=== PATIENT | female | born 1935 | race Caucasian/White ===

== ENCOUNTER 2016-06-06 15:26 | Emergency (ER) | payer OTHER, MEDICARE ==
--- NOTE | 2016-06-06 15:29 | ED GENERAL ADULT ---
History of Present Illness General Chief Complaint: Altered Mental Status Stated Complaint: BIBA FOR AMS Source: patient, AIDE Exam Limitations: clinical condition Vital Signs & Intake/Output Vital Signs & Intake/Output Vital Signs Date Time Temp Pulse Resp B/P Pulse O2 O2 Flow FiO2 Ox Delivery Rate 06/06 1951 98.0 89 18 126/58 96 Room Air 06/06 1545 97.2 64 18 120/57 99 Room Air Room Air Allergies Coded Allergies: No Known Allergies (08/19/15) Reconcile Medications Acetaminophen (8 Hour) 650 MG TABLET.ER 1 TAB PO BID PRN ARTHRITIS PAIN ( Reported) Allopurinol 100 MG TABLET 1 TAB PO DAILY UNKNOWN (Reported) Amlodipine Besylate 5 MG TABLET 0.5 TAB PO QPM BP (Reported) Amoxicillin 500 MG TABLET 1 TAB PO BID UTI Aspirin (Ecotrin*) 81 MG TABLET.DR 1 TAB PO DAILY HEART/BLOOD (Reported) Calamine 180 ML LOTION 1 GENARO TOP EOD BACK (Reported) Cholecalciferol (Vitamin D3) (Vitamin D3) 1,000 UNIT CAPSULE 1 CAP PO DAILY SUPPLEMENT (Reported) Cyanocobalamin (Vitamin B-12) 1,000 MCG TABLET 0.5 TAB PO DAILY SUPPLEMENT ( Reported) Escitalopram Oxalate 10 MG TABLET 1 TAB PO DAILY MENTAL HEALTH (Reported) Ezetimibe (Zetia) 10 MG TABLET 1 TAB PO DAILY CHOLESTEROL (Reported) Metoprolol Tartrate 25 MG TABLET 1 TAB PO BID HEART/BP (Reported) Nystatin 100,000 UNIT/GRAM CREAM..G. 1 GENARO TOP BID RASH ON ABDOMEN (Reported) apply to affected area(s) Pravastatin Sodium 20 MG TABLET 1 TAB PO DAILY CHOLESTEROL (Reported) Triamcinolone Acetonide 0.1 % CREAM..G. 1 GENARO TOP BID RASH - ABDOMEN ( Reported) Valsartan (Diovan) 40 MG TABLET 1 TAB PO DAILY HEART/BP (Reported) Triage Nurses Notes Reviewed? yes Onset: Abrupt Duration: day(s): Timing: recent history HPI: 06/06/16 5:30 PM This is a 80-year-old female who presents to the emergency department for episodes of confusion earlier today according to her home health aide. The patient stated that her home health aide was worried about a and so she called 911. She denies fever, chest pain, headache, abdominal pain or any complaints. She is awake alert and oriented 3, she says she has a history of polio as a child and is unable to ambulate. The onset of the symptoms were abrupt the duration was just today, the severity was significant as she was required to come to the hospital by ambulance. Head CT was ordered, EKG was ordered, labs were done. Past History Travel History Traveled to [place] past 21 day No Medical History Any Pertinent Medical History? see below for history Neurological: NONE EENT: NONE Cardiovascular: hypertension, hyperlipidemia Respiratory: NONE Gastrointestinal: NONE Hepatic: NONE Renal: NONE Musculoskeletal: NONE Psychiatric: NONE Endocrine: NONE Surgical History Surgical History: non-contributory Psychosocial History What is your primary language Haitian Family History Hx Contributory? No Review of Systems Review of Systems Constitutional: Denies: fever. EENTM: Denies: visual changes. Respiratory: Denies: cough, short of breath. Cardiovascular: Denies: chest pain. GI: Denies: abdominal pain. Genitourinary: Reports: no symptoms. Musculoskeletal: Reports: no symptoms. Skin: Denies: rash. Neurological/Psychological: Reports: confusion. Hematologic/Endocrine: Denies: bruising, bleeding. Physical Exam Physical Exam General Appearance: alert, awake, anxious, mild distress Head: atraumatic, normal appearance Eyes: Bilateral: normal appearance, PERRL, EOMI. Ears, Nose, Throat: normal pharynx, normal ENT inspection, hearing grossly normal Neck: normal inspection, supple, full range of motion Respiratory: normal breath sounds, chest non-tender Cardiovascular: regular rate/rhythm Peripheral Pulses: 4+ radial (R), 4+ radial (L) Gastrointestinal: non-tender Back: decreased range of motion Extremities: CONTRACTURES Neurologic/Psych: awake, alert, oriented x 3 Skin: intact, normal color, warm/dry Core Measures ACS in differential dx? No CVA/TIA Diagnosis: No Severe Sepsis Present: No Septic Shock Present: No Progress Differential Diagnoses I considered the following diagnoses in my evaluation of the patient: [CVA, TIA, sepsis, UTI, electrolyte derangement] Plan of Care: Orders Procedure Date/time Status Add-on Test (ER Only) 06/06 1925 Active Straight Cath 06/06 1724 Active CULTURE,URINE 06/06 161 Active URINALYSIS 06/06 1612 Complete TROPONIN LEVEL 06/06 161 Complete COMPREHENSIVE METABOLIC PANEL 06/06 161 Complete CBC WITHOUT DIFFERENTIAL 06/07 1611 Complete EKG 06/07 1611 Active Laboratory Tests 06/06/161826: Urine Color YEL, Urine Clarity HAZY H, Urine pH 7.0, Ur Specific [place] 1.015, Urine Protein NEG, Urine Ketones NEG, Urine Nitrite NEG, Urine Bilirubin NEG, Urine Urobilinogen 0.2, Ur Leukocyte Esterase MOD H, Ur Microscopic SEDIMENT EXAMINED, Urine RBC 3-5, Urine WBC > 75 H, Ur Epithelial Cells OCCAS, Urine Bacteria MANY H, Urine Hemoglobin NEG, Urine Glucose NEG 06/06/16 1649: Anion Gap 10, Estimated GFR > 60, BUN/Creatinine Ratio 30.0 H, Glucose 100 H, Calcium 9.6, Total Bilirubin 0.5, AST 24, ALT 33, Alkaline Phosphatase 92, Troponin I < 0.01, Total Protein 7.1, Albumin 3.9, Globulin 3.2, Albumin/ Globulin Ratio 1.2, CBC w Diff NO MAN DIFF REQ, RBC 4.39, MCV 87.5, MCH 28.7, RDW 14.0, MPV 7.9, Gran % 74.8, Lymphocytes % 14.7 L, Monocytes % 9.9 H, Eosinophils % 0.3, Basophils % 0.3, Absolute Granulocytes 7.7 H, Absolute Lymphocytes 1.5, Absolute Monocytes 1.0 H, Absolute Eosinophils 0, Absolute Basophils 0, PUBS MCHC 32.8 L Microbiology 06/06 1826 URINE ROUT: Urine Culture - RECD CXR Impression: no acute abnormality, no infiltrates, normal size heart Initial ED EKG: NSR, PVC Prior EKG: unchanged Comments: HEAD CT PATIENT: DOUG OLMOS PRESENT AGE: 80 PATIENT ACCOUNT NO: [id number] : 37 LOCATION: [facility] ORDERING PHYSICIAN: JERRELL GARVIN DO SERVICE DATE: 06/06/16 EXAM TYPE: CAT - CT HEAD WO IV CONTRAST EXAMINATION: CT HEAD WITHOUT CONTRAST CLINICAL INFORMATION: Altered mental status. Evaluate for acute stroke. COMPARISON: None. TECHNIQUE: Contiguous axial imaging was performed from the skull base to vertex without intravenous administration of contrast. DLP: 600 mGy-cm FINDINGS: No acute intracranial abnormality. No acute intracranial hemorrhage, mass or mass effect or abnormal extra-axial fluid collections. The density within the dural venous sinuses is within normal limits. There is generalized parenchymal volume loss with proportional prominence of the sulci and ventricles. There are no focal areas of hypoattenuation within a vascular distribution to suggest acute transcortical ischemia. Areas of hypoattenuation within the periventricular and deep cortical white matter are nonspecific but could reflect sequela of severe chronic microvascular ischemia. The basilar cisterns are patent. No acute calvarial abnormality is identified. Soft tissues appear unremarkable. Evaluation of the paranasal sinuses demonstrates complete opacification of the right maxillary sinus. There is also near complete opacification of the left sphenoid sinus. The remaining imaged paranasal sinuses and mastoid air cells are well aerated. IMPRESSION: No acute intracranial abnormality. However, please note that MRI of the brain is more sensitive in evaluating for underlying ischemia. Confluent and patchy areas of hypoattenuation within the periventricular and deep cortical white matter are nonspecific but could reflect sequela of severe chronic microvascular ischemia. If clinical concern for acute stroke persists, consider correlation with MRI of the brain, barring any contraindications to MRI. This critical result was discussed with Dr. Jerrell Garvin at 5:46 PM on 06/06/2016 and it was ascertained that the content and urgency of the report was understood at the time of direct communication. DICTATED BY: FRED TORRES MD DATE/TIME DICTATED:06/06/161739 UNION CARPENTER:SAVANNA DATE/TIME TRANSCRIBED:06/06/161739 CONFIDENTIAL, DO NOT COPY WITHOUT APPROPRIATE AUTHORIZATION. <Electronically signed in Other Vendor System> SIGNED BY: FRED TORRES MD 06/06/16 174 Departure Departure Disposition: HOME OR SELF CARE Condition: Stable Clinical Impression Primary Impression: UTI (urinary tract infection) Secondary Impressions: Altered mental status Referrals: MARY RODRIGUEZ MD (PCP/Family) Departure Forms: Customer Survey General Discharge Information Prescriptions: Current Visit Scripts Amoxicillin 1 TAB PO BID #20 TAB Comments 06/06/16 6:30 PM Patient's labs are unremarkable. Head CT shows no acute changes. She does have pyuria urine culture was sent. She was comfortable returning home. Her aide will be with her tomorrow morning. She was awake alert and oriented 3. She understood the discharge plan. I also reviewed the history with the aid. There were no new medication changes. She's not had fever. She's had episodes of confusion in the past, it seemed to be more frequent today. She will follow- up with her primary care doctor this week. Critical Care Note Critical Care Note Critical Care Time: non-applicable
--- NOTE | 2016-06-06 16:57 | RADIOLOGY REPORT ---
EXAMINATION: XR PORTABLE CHEST CLINICAL INFORMATION: Altered mental status, evaluate for pneumonia. COMPARISON: Portable chest x-ray 05/23/2012. TECHNIQUE: Portable AP view of the chest was obtained. FINDINGS: The cardiomediastinal silhouette is within normal limits. There is a small focus of discoid atelectasis at the left lung base laterally. No focal infiltrate, congestion, or significant pleural effusion is seen. There is no evidence of pneumothorax or pulmonary edema. Included osseous structures appear osteopenic with advanced degenerative changes in the shoulders, left side greater than right. IMPRESSION: No evidence of an acute intrathoracic process.
[2016-06-06 16:59] LABS: ABSOLUTE BASOPHIL COUNT 0 /CUMM (0.0-0.2); ABSOLUTE EOSINOPHIL COUNT 0 /CUMM (0.0-0.7); ABSOLUTE GRANULOCYTE CT 7.7 /CUMM (1.4-6.5); ABSOLUTE LYMPH COUNT 1.5 /CUMM (1.2-3.4); BASOPHIL % 0.3 % (0.0-2.0); EOSINOPHIL % 0.3 % (0-5); GRANULOCYTE % 74.8 % (42.2-75.2); HEMATOCRIT 38.4 % (37-47); MEAN CORPUSCULAR HGB 28.7 PG (27.0-31.0); MEAN CORPUSCULAR HGB CONC 32.8 G/DL (33.0-37.0); MEAN CORPUSCULAR VOLUME 87.5 FL (81.0-99.0); MEAN PLATELET VOLUME 7.9 FL (7.4-10.4); PLATELET COUNT 289 /CUMM (130-400); RED BLOOD CELL CT 4.39 /CUMM (4.20-5.40); WHITE BLOOD CELL COUNT 10.2 /CUMM (4.8-10.8)
[2016-06-06] MEDS ORDERED: NYSTATIN15 G1 TOP (17:46)
[2016-06-06] MEDS ORDERED: ESCITALOPRAM OX10 MG PO (17:47)
[2016-06-06] MEDS ORDERED: TRIAMCINOLONE A15 G1 TOP (17:47)
[2016-06-06] MEDS ORDERED: PRAVASTATIN SOD20 M2 PO (17:47)
[2016-06-06] MEDS ORDERED: AMLODIPINE BESYL5 M1 PO (17:48)
[2016-06-06] MEDS ORDERED: DIOVAN40 MG PO (17:49)
[2016-06-06] MEDS ORDERED: METOPROLOL TART25 M1 PO (17:49)
[2016-06-06] MEDS ORDERED: ZETIA10 M1 PO (17:49)
--- NOTE | 2016-06-06 17:49 | CT SCAN REPORT ---
EXAMINATION: CT HEAD WITHOUT CONTRAST CLINICAL INFORMATION: Altered mental status. Evaluate for acute stroke. COMPARISON: None. TECHNIQUE: Contiguous axial imaging was performed from the skull base to vertex without intravenous administration of contrast. DLP: 600 mGy-cm FINDINGS: No acute intracranial abnormality. No acute intracranial hemorrhage, mass or mass effect or abnormal extra-axial fluid collections. The density within the dural venous sinuses is within normal limits. There is generalized parenchymal volume loss with proportional prominence of the sulci and ventricles. There are no focal areas of hypoattenuation within a vascular distribution to suggest acute transcortical ischemia. Areas of hypoattenuation within the periventricular and deep cortical white matter are nonspecific but could reflect sequela of severe chronic microvascular ischemia. The basilar cisterns are patent. No acute calvarial abnormality is identified. Soft tissues appear unremarkable. Evaluation of the paranasal sinuses demonstrates complete opacification of the right maxillary sinus. There is also near complete opacification of the left sphenoid sinus. The remaining imaged paranasal sinuses and mastoid air cells are well aerated. IMPRESSION: No acute intracranial abnormality. However, please note that MRI of the brain is more sensitive in evaluating for underlying ischemia. Confluent and patchy areas of hypoattenuation within the periventricular and deep cortical white matter are nonspecific but could reflect sequela of severe chronic microvascular ischemia. If clinical concern for acute stroke persists, consider correlation with MRI of the brain, barring any contraindications to MRI. This critical result was discussed with Dr. Jerrell Lopez at 5:46 PM on 06/06/2016 and it was ascertained that the content and urgency of the report was understood at the time of direct communication.
[2016-06-06] MEDS ORDERED: ALLOPURINOL100 M1 PO (17:50)
[2016-06-06] MEDS ORDERED: 8 HOUR650 MG PO (17:50)
[2016-06-06] MEDS ORDERED: VITAMIN D31000 UNI1 PO (17:51)
[2016-06-06] MEDS ORDERED: VITAMIN B-121000 MC3 PO (17:51)
[2016-06-06] MEDS ORDERED: ASPIRIN EC81 M1 PO (17:52)
[2016-06-06] MEDS ORDERED: CALAMINE180 ML TOP (17:53)
[2016-06-06] MEDS ORDERED: AMOXICILLIN500 M3 PO (19:36)
[2016-06-06 19:51] VITALS: BP 126/58
== END 2016-06-06 20:29 ==
LOC: ERH 15:26
PROVIDERS: Emergency Medicine
DX: N39.0 Urinary tract infection, site not specified (principal); R41.82 Altered mental status, unspecified
CPT/HCPCS: 81001; 87086; 93005; 93010

== ENCOUNTER 2016-06-09 13:08 | Inpatient (IN) | payer OTHER, MEDICARE ==
[~2016-06-09] VITALS: Ht 149.9 cm; Wt 90.7 kg
[~2016-06-09 13:08] MED LIST: 8 HOUR650 MG PO; ALLOPURINOL100 M1 PO; AMLODIPINE BESYL5 M1 PO; AMOXICILLIN500 M3 PO; ASPIRIN EC81 M1 PO; CALAMINE180 ML TOP; DIOVAN40 MG PO; ESCITALOPRAM OX10 MG PO; METOPROLOL TART25 M1 PO; NYSTATIN15 G1 TOP; PRAVASTATIN SOD20 M2 PO; TRIAMCINOLONE A15 G1 TOP; VITAMIN B-121000 MC3 PO; VITAMIN D31000 UNI1 PO; ZETIA10 M1 PO
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
--- NOTE | 2016-06-09 16:35 | RADIOLOGY REPORT ---
EXAMINATION: XR PORTABLE CHEST CLINICAL INFORMATION: Acute mental status change. Question pneumonia. COMPARISON: June 06, 2016 and May 23, 2012 TECHNIQUE: Portable AP view of the chest was obtained. FINDINGS: There is a region of parenchymal disease seen at the left base which may relate to atelectasis or pneumonitis. This is slightly more prominent than on prior study with some silhouetting of the lateral left hemidiaphragm. There is some minor scarring present in this location on study of May 23, 2012. No pneumothorax or significant pleural effusion is seen. The heart is upper limits of normal in size. No evidence of pulmonary edema. There is scoliosis convex right and degenerative change of the shoulders. IMPRESSION: Small focus of disease left lower lobe which may be related to atelectasis or pneumonitis.
[2016-06-09 17:21] LABS: ABSOLUTE BASOPHIL COUNT 0 /CUMM (0.0-0.2); ABSOLUTE EOSINOPHIL COUNT 0.1 /CUMM (0.0-0.7); ABSOLUTE GRANULOCYTE CT 5.4 /CUMM (1.4-6.5); ABSOLUTE LYMPH COUNT 1.9 /CUMM (1.2-3.4); ABSOLUTE MONOCYTE COUNT 0.7 /CUMM (0.10-0.60); BASOPHIL % 0.3 % (0.0-2.0); EOSINOPHIL % 1.2 % (0-5); GRANULOCYTE % 66.9 % (42.2-75.2); HEMATOCRIT 38.7 % (37-47); MEAN CORPUSCULAR HGB 28.7 PG (27.0-31.0); PLATELET COUNT 301 /CUMM (130-400); RBC DISTRIBUTION WIDTH 14.4 % (11.5-14.5); RED BLOOD CELL CT 4.45 /CUMM (4.20-5.40); WHITE BLOOD CELL COUNT 8.1 /CUMM (4.8-10.8)
--- NOTE | 2016-06-09 22:17 | History & Physical ---
DENISE MCINTOSH MD 06/09/16 2216: General Information and HPI History of Present Illness: 80-year-old woman with significant past medical history of dementia and childhood polio with residual paresis recently seen the [facility] for UTI under evaluation for altered mental status/confusion. Patient was seen in the [facility] ED on 06/06/16 after being sent in from by visiting home health aide for evaluation of confusion and subsequently diagnosed with a urinary tract infection after having an unremarkable CT head with instruction to take a 10 day course of amoxicillin and to follow-up with her PCP within one week. Presently patient is seen in the ED after being sent in again for persistent/ worsening altered mental status as per home health aide staff. Collateral information from these members is unobtainable at this time. Patient was reportedly still confused for which 911 was called but nursing staff had left by the time EMS services arrived. Patient is currently oriented to person/place/ time, however is quite forgetful and tangential during the interview. Her only she endorses "feeling fine" and otherwise denies any complaints. She reports adequate oral intake Additionally she denies any headache, fever, chills, chest pain, palpitations, shortness of breath, cough, nausea, vomiting, diarrhea. Patient is incontinent at baseline and denies any obvious urinary frequency/urgency/burning/pain. Past medical history-hypertension, hyperlipidemia, CAD, gout, depression Social history-lives at home alone, ambulates with a wheelchair but is able to transfer from chair to other surfaces, denies smoking or alcohol use, denies recreational drug use, endorses proper medication compliance Allergies/Medications Allergies: Coded Allergies: No Known Allergies (08/19/15) Home Med list Acetaminophen (8 Hour) 650 MG TABLET.ER 1 TAB PO BID PRN ARTHRITIS PAIN ( Reported) Allopurinol 100 MG TABLET 1 TAB PO DAILY UNKNOWN (Reported) Amlodipine Besylate 5 MG TABLET 0.5 TAB PO QPM BP (Reported) Amoxicillin 500 MG TABLET 1 TAB PO BID UTI Aspirin (Ecotrin*) 81 MG TABLET.DR 1 TAB PO DAILY HEART/BLOOD (Reported) Calamine 180 ML LOTION 1 GENARO TOP EOD BACK (Reported) Cholecalciferol (Vitamin D3) (Vitamin D3) 1,000 UNIT CAPSULE 1 CAP PO DAILY SUPPLEMENT (Reported) Cyanocobalamin (Vitamin B-12) 1,000 MCG TABLET 0.5 TAB PO DAILY SUPPLEMENT ( Reported) Escitalopram Oxalate 10 MG TABLET 1 TAB PO DAILY MENTAL HEALTH (Reported) Ezetimibe (Zetia) 10 MG TABLET 1 TAB PO DAILY CHOLESTEROL (Reported) Metoprolol Tartrate 25 MG TABLET 1 TAB PO BID HEART/BP (Reported) Nystatin 100,000 UNIT/GRAM CREAM..G. 1 GENARO TOP BID RASH ON ABDOMEN (Reported) apply to affected area(s) Pravastatin Sodium 20 MG TABLET 1 TAB PO DAILY CHOLESTEROL (Reported) Triamcinolone Acetonide 0.1 % CREAM..G. 1 GENARO TOP BID RASH - ABDOMEN ( Reported) Valsartan (Diovan) 40 MG TABLET 1 TAB PO DAILY HEART/BP (Reported) Past History Travel History Traveled to [place] past 21 day No Medical History Neurological: NONE EENT: NONE Cardiovascular: hypertension, hyperlipidemia Respiratory: NONE Gastrointestinal: NONE Hepatic: NONE Renal: NONE Musculoskeletal: NONE Psychiatric: NONE Endocrine: NONE History of MRSA: No History of VRE: No History of CDIFF: No Isolation History: Standard Influenza Vaccine: 12/29/15 Surgical History Surgical History: non-contributory Past Family/Social History Psychosocial History Where do you live? Home Services at Home: Home Health Aide Smoking Status: Former Smoker Review of Systems Review of Systems Constitutional: Reports: see HPI. Exam & Diagnostic Data Last 24 Hrs of Vital Signs/I&O Vital Signs Date Time Temp Pulse Resp B/P Pulse O2 O2 Flow FiO2 Ox Delivery Rate 06/09 2054 76 18 108/52 06/09 2049 97.6 76 18 108/52 97 Room Air 06/09 1945 97.6 67 17 127/60 97 Room Air 06/09 1724 99 Room Air 06/09 1535 97.5 77 18 153/68 98 06/09 1313 97.1 77 16 136/51 96 Room Air Intake & Output 06/09 1600 06/09 0800 06/09 0000 Intake Total Output Total Balance Patient 90.718 kg Weight Physical Exam General Appearance Alert, Oriented X3, Cooperative, No Acute Distress Skin No Rashes, No Breakdown, No Significant Lesion HEENT Atraumatic, PERRLA, EOMI, Mucous Membr. moist/pink Neck Supple Cardiovascular Regular Rate, Normal S1, Normal S2, No Murmurs Lungs Clear to Auscultation, Normal Air Movement Abdomen Normal Bowel Sounds, Soft, No Tenderness, No Hepatospenomegaly, No Masses Neurological Normal Speech, Normal Tone, Cranial Nerves 3-12 NL Extremities No Clubbing, No Cyanosis, No Edema, Normal Pulses, No Tenderness/ Swelling Vascular Normal Pulses, Pulses Symmetrical Last 24 Hrs of Labs/Se: Laboratory Tests 06/09/16 1703: Anion Gap 12, Estimated GFR > 60, BUN/Creatinine Ratio 31.4 H, Glucose 85, Calcium 10.0, Total Bilirubin 0.6, AST 32, ALT 36, Alkaline Phosphatase 101, Troponin I < 0.01, Total Protein 7.4, Albumin 4.1, Globulin 3.3, Albumin/ Globulin Ratio 1.2, CBC w Diff NO MAN DIFF REQ, RBC 4.45, MCV 87.0, MCH 28.7, RDW 14.4, MPV 8.0, Gran % 66.9, Lymphocytes % 23.2, Monocytes % 8.4, Eosinophils % 1.2, Basophils % 0.3, Absolute Granulocytes 5.4, Absolute Lymphocytes 1.9, Absolute Monocytes 0.7 H, Absolute Eosinophils 0.1, Absolute Basophils 0, PUBS MCHC 33.0, Urine Color YEL, Urine Clarity CLEAR, Urine pH 7.0, Ur Specific [place] 1.020, Urine Protein NEG, Urine Ketones TRACE H, Urine Nitrite NEG, Urine Bilirubin NEG, Urine Urobilinogen 0.2, Ur Leukocyte Esterase NEG, Ur Microscopic EXAM NOT REQUIRED, Urine Hemoglobin NEG, Urine Glucose NEG Diagnostic Data CXR Results IMPRESSION: Small focus of disease left lower lobe which may be related to atelectasis or pneumonitis. Assessment/Plan Assessment: 80-year-old woman with multiple medical problems seen for evaluation of worsening confusion from baseline as per visiting home health aides. ED course: -Vitals: 97.1-97.6, HR 67-77, RR 16-18, BP 108-153/52-68, O2 96-99% on room air -Significant Labs: Complete blood count/serum chemistries within normal limits without leukocytosis, normal hepatic function test, troponin <0.01, urinalysis negative -Studies: Small focus of disease in left lower lobe which may be related to atelectasis or pneumonitis -Interventions: None Altered mental status with a history of dementia/recent UTI Patient diagnosed with a urinary tract infection on 06/06/16 and discharged home to complete a total antibiotic course of 10 days with oral amoxicillin. Patient has been reportedly more confused than baseline for which EMS services were called by home health aide staff. Further collateral information is unobtainable at this time. Repeat urinalysis does not demonstrate any persistent urinary tract infection. -General medicine -Follow off antibiotics -Physical therapy evaluation Hypertension -Amlodipine 2.5 mg by mouth daily -losartan 50 mg by mouth daily -Metoprolol 25 mg by mouth daily Hyperlipidemia - pravastatin 20 mg by mouth daily Gout-allopurinol 100 mg by mouth daily Depression-escitalopram 10 mg by mouth daily Coronary artery disease-aspirin 81 mg by mouth daily Pain plan-Toradol/acetaminophen Diet-heart healthy diet DVT prophylaxis-Lovenox CODE STATUS-full code As Ranked By This Provider Problem List: 1. Altered mental status Core Measures/Miscellaneous Acute Coronary Syndrome ACS Diagnosis: No Cerebrovascular Accident CVA/TIA Diagnosis: No Congestive Heart Failure CHF Diagnosis: No Venous Thromboembolism VTE Risk Factors: Acute medical illness, Age > 40, Immobility, paresis No [facility] VTE prophylaxis d/t: No contraindications No VTE Pharm Prophylaxis d/t: No contraindications VTE Diagnosis: No VTE Type: NONE VTE Confirmed by (Test): NONE Severe Sepsis Severe Sepsis Present: No Septic Shock Septic Shock Present: No Miscellaneous Documentation Attending Case Discussed With: MARY RODRIGUEZ MD Primary Care Physician: MARY RODRIGUEZ MD Patient sees these Specialists Patient does not recall Level of Patient Care: General Medicine STVEE JUNE 06/09/16 2226: Resident Review Statement Resident Statement: examined this patient, discussed with chemical engineering intern, agreed with chemical engineering intern Other Findings: Patient is a 80-year-old woman with past medical history is significant for childhood polio since the age of 14 resulted in her lower extremity paresis, dementia, hypertension and hyperlipidemia, recently treated for UTI with antibiotics for 3 days presented to the ED for the evaluation of one episode of altered mental status in the morning. In the ED patient seems to be alert and await but forgetful. Denied any chest discomfort trouble breathing palpitations. Denied any nausea vomiting or abdominal discomfort. Patient is incontinent at baseline denied any urinary symptoms. Denied any decreased oral intake. The state tested nursing assistant was concerned about the patient's confusion and and also that she could not able to come tomorrow due to a snowstorm, she sent the patient to the ED,. Was in vision to be 97.1, pulse 77, respiratory rate 18, blood pressure 136/51 on room air Appearance: Alert and oriented 3, not in acute distress. Seems to be forgetful Skin: Grossly normal. HEENT: PEERLA Neck: Supple, No JVD Cardiovascular: Regular Rate, Normal S1, Normal S2, No Murmurs Lungs: Lungs clear to auscultation bilaterally Abdomen: Normal bowel sounds without any tenderness Neurological: Neuro exam intact grossly Extremities: No swelling or edema bilaterally in lower extremities Vascular: Normal Pulses. Normal labs on admission, slightly elevated BUN due to dehydration Urinalysis: Benign Chest x-ray:Small focus of disease left lower lobe which may be related to atelectasis or pneumonitis. Assessment and plan: 1. Acute episode of altered mental status resolved now with history of dementia -Assessment for short-term rehabilitation: * Admit the patient [facility] floor: * Continue with gentle hydration * Hold antihypertensives. * Avoid delirium triggers including narcotics, anticholinergics, benzodiazepines. * Avoid constipation, MiraLAX and half as needed. * Reorientation on a daily basis * Obtain physical therapy consult in the morning. * Patient will require 3 nights stay before the rehabilitation. 2. History of coronary artery disease, hypertension have lipidemia: * Continue all medications from the morning 3. History of gout: * Continue allopurinol from the morning. 4. History of depression: * Continue escitalopram. Mild pain control with with Tylenol DVT prophylaxis with Lovenox Patient is full code
[2016-06-09 23:31] VITALS: BP 110/52
--- NOTE | 2016-06-10 06:22 | PN- Housestaff ---
DAYNA COLEMAN,DENISE 06/10/16 0619: Subjective Follow-up For: Altered mental status Subjective: Patient seen and examined. She is seen lying flat in bed resting comfortably. She appears to be in no acute distress. She believes she slept well last night, but does not recall the events that occured last night. She states she feels fine and otherwise does not endorse any complaints. Additionally she denies any headache, fever, chills, chest pain, shortness of breath, nausea, vomitting, diarrhea, urinary frequency/urgency/burning/pain. No overnight events reported. Review of Systems Constitutional: Reports: see HPI. Objective Last 24 Hrs of Vital Signs/I&O Vital Signs Date Time Temp Pulse Resp B/P Pulse O2 O2 Flow FiO2 Ox Delivery Rate 06/09 2347 67 110/52 06/09 2331 97.7 67 20 110/52 95 Room Air 06/09 2055 76 18 108/52 06/09 2050 97.6 76 18 108/52 97 Room Air 06/09 1945 97.6 67 17 127/60 97 Room Air 06/09 1724 99 Room Air 06/09 1535 97.5 77 18 153/68 98 06/09 1313 97.1 77 16 136/51 96 Room Air Intake & Output 06/10 0800 06/10 0000 06/09 1600 Intake Total 400 Output Total 700 Balance -300 Intake, IV 300 Intake, Oral 100 Output, Urine 700 Patient 90.718 kg 90.718 kg Weight Physical Exam General Appearance: Alert, Cooperative, No Acute Distress Other Physical Findings: General - well developed, well nourished obese elderly woman in no acute distress HEENT - NCAT, PERRL, EOMI, anicteric sclera CVS - S1, S2 w/o m/g/r Resp - CTA bilaterally GI - soft, obese, nontender, nondistended Neuro - Awake and alert, orietned to person/place, CN II - XII grossly intact Ext - normal pulses, no cyanosis/clubbing/edema Current Medications: Current Medications Sig/Jennifer Start time Last Medication Dose Route Stop Time Status Admin Acetaminophen 650 MG Q6P PRN 06/09 2044 AC PO Acetaminophen 1,000 MG Q6P PRN 06/09 2044 AC IV Allopurinol 100 MG DAILY 06/10 1000 AC PO Amlodipine Besylate 2.5 MG QPM 06/09 2200 AC 06/09 PO 2347 Aspirin Buffered 81 MG DAILY 06/10 1000 AC PO Enoxaparin Sodium 40 MG DAILY 06/10 1000 AC SC Escitalopram Oxalate 10 MG DAILY 06/10 1000 AC PO Ketorolac 15 MG Q8P PRN 06/09 2044 AC Tromethamine IV Losartan Potassium 50 MG DAILY 06/10 1000 AC PO Metoprolol Tartrate 0 .STK-MED ONE 06/09 2048 DC PO Metoprolol Tartrate 25 MG BID 06/09 2044 AC PO Ondansetron HCl 4 MG Q8P PRN 06/10 0130 AC PO Pravastatin Sodium 20 MG DAILY 06/10 1000 AC PO Sodium Chloride 1,000 ML Q13H 06/09 2044 AC 06/09 IV 205 Sodium Chloride 1,000 ML ONCE ONE 06/09 1630 DC 06/09 IV 06/10 0229 1719 Last 24 Hrs of Lab/Se Results Last 24 Hrs of Labs/Mics: Laboratory Tests 06/10/16 0715: Sodium Pending, Potassium Pending, Chloride Pending, Carbon Dioxide Pending, Anion Gap Pending, BUN Pending, Creatinine Pending, BUN/Creatinine Ratio Pending , CBC w Diff Pending, WBC Pending, RBC Pending, Hgb Pending, Hct Pending, MCV Pending, MCH Pending, RDW Pending, Plt Count Pending, MPV Pending, PUBS MCHC Pending 06/09/16 1703: Anion Gap 12, Estimated GFR > 60, BUN/Creatinine Ratio 31.4 H, Glucose 85, Calcium 10.0, Total Bilirubin 0.6, AST 32, ALT 36, Alkaline Phosphatase 101, Troponin I < 0.01, Total Protein 7.4, Albumin 4.1, Globulin 3.3, Albumin/ Globulin Ratio 1.2, CBC w Diff NO MAN DIFF REQ, RBC 4.45, MCV 87.0, MCH 28.7, RDW 14.4, MPV 8.0, Gran % 66.9, Lymphocytes % 23.2, Monocytes % 8.4, Eosinophils % 1.2, Basophils % 0.3, Absolute Granulocytes 5.4, Absolute Lymphocytes 1.9, Absolute Monocytes 0.7 H, Absolute Eosinophils 0.1, Absolute Basophils 0, PUBS MCHC 33.0, Urine Color YEL, Urine Clarity CLEAR, Urine pH 7.0, Ur Specific [place] 1.020, Urine Protein NEG, Urine Ketones TRACE H, Urine Nitrite NEG, Urine Bilirubin NEG, Urine Urobilinogen 0.2, Ur Leukocyte Esterase NEG, Ur Microscopic EXAM NOT REQUIRED, Urine Hemoglobin NEG, Urine Glucose NEG Assessment/Plan Assessment: 80-year-old woman with multiple medical problems seen for evaluation of worsening confusion from baseline as per visiting home health aides. Altered mental status with a history of dementia/recent UTI Patient diagnosed with a urinary tract infection on 06/06/16 and discharged home to complete a total antibiotic course of 10 days with oral amoxicillin. Patient has been reportedly more confused than baseline for which EMS services were called by home health aide staff. Further collateral information is unobtainable at this time. Repeat urinalysis does not demonstrate any persistent urinary tract infection. -General medicine -Follow off antibiotics -Physical therapy evaluation -Case management for placement Hypertension -Amlodipine 2.5 mg by mouth daily -losartan 50 mg by mouth daily -Metoprolol 25 mg by mouth daily Hyperlipidemia - pravastatin 20 mg by mouth daily Gout-allopurinol 100 mg by mouth daily Depression-escitalopram 10 mg by mouth daily Coronary artery disease-aspirin 81 mg by mouth daily Pain plan-Toradol/acetaminophen Diet-heart healthy diet DVT prophylaxis-Lovenox CODE STATUS-full code Problem List: 1. Altered mental status Pain Ratin Pain Location: None Pain Goal: Remain pain free Pain Plan: As noted in plan Tomorrow's Labs & Rationales: None WU FUENTES MD 06/10/16 1245: Attending MD Review Statement Attending Statement Attending Assessment/Plan: non-Hospitalist patient
[2016-06-10 07:26] VITALS: BP 150/60
--- NOTE | 2016-06-10 08:24 | PN- Att Addend ---
Attending Addendum Attending Brief Note Attending admitting note. 80-year-old lady with the past medical history of childhood polio admitted today to the hospital because of change of mental status. According to the visiting nurse patient's the bit confused she has history of dementia but progressively is been getting worse. She has history of polio with the weakness of the lower extremities. Patient is been doing fairly well up to now. In the ED she appeared to be awake alert but not up to her baseline Not safe at home by herself according to the visiting does fall risk and also shared with the change in the mental status which is new for her. Past medical history of hypertension dyslipidemia and childhood polio. Patient limited to wheelchair at most of the time. Vital Signs Date Time Temp Pulse Resp B/P Pulse O2 O2 Flow FiO2 Ox Delivery Rate 06/10 0726 97.5 74 20 150/60 92 Room Air 06/09 2347 67 110/52 06/09 2331 97.7 67 20 110/52 95 Room Air 06/09 2055 76 18 108/52 06/09 2050 97.6 76 18 108/52 97 Room Air 06/09 1945 97.6 67 17 127/60 97 Room Air 06/09 1724 99 Room Air 06/09 1535 97.5 77 18 153/68 98 06/09 1313 97.1 77 16 136/51 96 Room Air Intake & Output 06/10 1600 06/10 0800 06/10 0000 Intake Total 700 400 Output Total 700 Balance 700 -300 Intake, IV 600 300 Intake, Oral 100 100 Output, Urine 700 Patient 200 lb Weight On examination Patient is awake alert oriented 3 cooperative. No acute distress Neck is supple JVD is not raised Heart S1 S1 S2 is normal no murmurs Lungs air entry equal bilaterally no crepitations or rhonchi Abdomen is soft nontender bowel sounds are present. Good bilateral osteoarthritis of the knees. Weakness of the lower extremities. Pedal pulses 2+ bilaterally no Tenderness present. Laboratory Tests 06/10 06/09 06/09 0715 1703 1600 Chemistry Sodium (137 - 145 mmol/L) Pending 139 Potassium (3.5 - 5.1 mmol/L) Pending 4.5 Chloride (98 - 107 mmol/L) Pending 100 Carbon Dioxide (22 - 30 mmol/L) Pending 27 Anion Gap (5 - 16) Pending 12 BUN (7 - 17 mg/dL) Pending 22 H Creatinine (0.5 - 1.0 mg/dL) Pending 0.7 Estimated GFR (>60 ml/min) > 60 BUN/Creatinine Ratio (7 - 25 %) Pending 31.4 H Glucose (65 - 99 mg/dL) 85 Calcium (8.4 - 10.2 mg/dL) 10.0 Total Bilirubin (0.2 - 1.3 mg/dL) 0.6 AST (14 - 36 U/L) 32 ALT (9 - 52 U/L) 36 Alkaline Phosphatase (<127 U/L) 101 Troponin I (< 0.11 ng/ml) < 0.01 Total Protein (6.3 - 8.2 g/dL) 7.4 Albumin (3.5 - 5.0 g/dL) 4.1 Globulin (1.9 - 4.2 gm/dL) 3.3 Albumin/Globulin Ratio (1.1 - 2.2 %) 1.2 Vitamin B12 (239 - 931 pg/mL) Pending Folate (2.76 - 20.0 ng/mL) Pending TSH (0.270 - 4.200 uIU/mL) Pending Free T4 (0.78 - 2.44 ng/dL) Pending Hematology CBC w Diff Pending NO MAN DIFF REQ WBC (4.8 - 10.8 /CUMM) Pending 8.1 RBC (4.20 - 5.40 /CUMM) Pending 4.45 Hgb (12.0 - 16.0 G/DL) Pending 12.8 Hct (37 - 47 %) Pending 38.7 MCV (81.0 - 99.0 FL) Pending 87.0 MCH (27.0 - 31.0 PG) Pending 28.7 RDW (11.5 - 14.5 %) Pending 14.4 Plt Count (130 - 400 /CUMM) Pending 301 MPV (7.4 - 10.4 FL) Pending 8.0 Gran % (42.2 - 75.2 %) 66.9 Lymphocytes % (20.5 - 51.1 %) 23.2 Monocytes % (1.7 - 9.3 %) 8.4 Eosinophils % (0 - 5 %) 1.2 Basophils % (0.0 - 2.0 %) 0.3 Absolute Granulocytes (1.4 - 6.5 /CUMM) 5.4 Absolute Lymphocytes (1.2 - 3.4 /CUMM) 1.9 Absolute Monocytes (0.10 - 0.60 /CUMM) 0.7 H Absolute Eosinophils (0.0 - 0.7 /CUMM) 0.1 Absolute Basophils (0.0 - 0.2 /CUMM) 0 PUBS MCHC (33.0 - 37.0 G/DL) Pending 33.0 Serology RPR Titer/FTA Pending Urines Urine Color (YEL,AMB,STR) YEL Urine Clarity (CLEAR) CLEAR Urine pH (5.0 - 8.0) 7.0 Ur Specific [place] (1.001 - 1.035) 1.020 Urine Protein (NEG,<30 MG/DL) NEG Urine Ketones (NEG) TRACE H Urine Nitrite (NEG) NEG Urine Bilirubin (NEG) NEG Urine Urobilinogen (0.1 - 1.0 EU/dl) 0.2 Ur Leukocyte Esterase (NEG) NEG Ur Microscopic EXAM NOT REQUIRED Urine Hemoglobin (NEG) NEG Urine Glucose (N MG/DL) NEG Assessment change in mental status history of dementia rule out any recent infection. Patient had a recent history history of UTI on 310 was discharged with the oral antibiotics. We'll follow her off antibiotics now do physical therapy evaluation continue current medications for hypertension Due to prophylaxis She may need to short-term placement for rehabilitation.
--- NOTE | 2016-06-10 08:25 | Admission Certification ---
Admission Certification Certification Statement - As attending physician, I certify that at the time of - admission, based on clinical presentation, severity of - symptoms, need for further diagnostic testing and - therapeutic interventions, and risk of adverse outcomes - without in-hospital treatment, in my clinical assessment, - this patient requires an acute hospital stay for a minimum - of two nights or longer. I have also considered psychsocial - factors such as support system, advanced age, financial - issues, cognitive issues, and failed out-patient treatments, - past re-admission history, safety of patient, and lack of - compliance as applicable. Specific rationale supporting this admission is: Admitted to the hospital for change in mental status. History of mild dementia but patient had recent history of UTI treated with oral antibiotics. Rule out recurrent UTI rule out sepsis , patient history of childhood polio. Patient is a fall risk unsafe at home
[2016-06-10 08:35] LABS: ABSOLUTE BASOPHIL COUNT 0 /CUMM (0.0-0.2); ABSOLUTE EOSINOPHIL COUNT 0.1 /CUMM (0.0-0.7); ABSOLUTE GRANULOCYTE CT 3.8 /CUMM (1.4-6.5); ABSOLUTE LYMPH COUNT 1.6 /CUMM (1.2-3.4); ABSOLUTE MONOCYTE COUNT 0.6 /CUMM (0.10-0.60); BASOPHIL % 0.5 % (0.0-2.0); EOSINOPHIL % 1.3 % (0-5); GRANULOCYTE % 62.5 % (42.2-75.2); HEMATOCRIT 33.8 % (37-47); MEAN CORPUSCULAR HGB CONC 33.2 G/DL (33.0-37.0); MEAN CORPUSCULAR VOLUME 87.3 FL (81.0-99.0); MEAN PLATELET VOLUME 8.2 FL (7.4-10.4); PLATELET COUNT 259 /CUMM (130-400); RBC DISTRIBUTION WIDTH 14.1 % (11.5-14.5); RED BLOOD CELL CT 3.87 /CUMM (4.20-5.40)
[2016-06-10 13:50] VITALS: BP 120/64
[2016-06-10 21:16] VITALS: BP 120/60
--- NOTE | 2016-06-11 04:30 | PN- Housestaff ---
Subjective Follow-up For: Altered mental status Dementia Subjective: Patient seen and examined. She is seen sitting upright in her chair at bedside resting comfortably. She appears to be in no acute distress. She does appear anxious/frustrated and is admittedly forgetful. She is currently oriented to person, but believes that she is at her sister's home. She is easily reoriented and becomes frustrated that she forgets. Collateral information obtained from case management reports that patient has been tearful while making passive suicidal ideation remarks. Additionally she denies any headache, fever, chills, chest pain, palpitations, shortness of breath, cough, nausea, vomiting, diarrhea. No overnight events reported. Review of Systems Constitutional: Reports: see HPI. Objective Last 24 Hrs of Vital Signs/I&O Vital Signs Date Time Temp Pulse Resp B/P Pulse O2 O2 Flow FiO2 Ox Delivery Rate 06/11 1412 97.8 60 20 120/60 92 Room Air 06/11 0944 72 122/50 06/11 0637 98.4 75 20 132/66 95 Room Air 06/10 2116 98.9 69 20 120/60 94 Room Air 06/10 2021 70 120/64 06/10 2021 70 120/64 Intake & Output 06/11 1600 06/11 0800 06/11 0000 Intake Total 960 960 Output Total Balance 960 960 Intake, IV 600 600 Intake, Oral 360 360 Number 1 1 Bowel Movements Physical Exam General Appearance: Alert, Cooperative, No Acute Distress Other Physical Findings: General -developed, well-nourished obese elderly woman in no acute distress HEENT - NCAT, PERRL, EOMI, anicteric sclera Cardio - S1, S2 w/o murmurs/gallops/rubs Resp - CTA bilaterally w/o wheezing/rhochi/crackles GI - soft, nontender, nondistended, bowel sounds present Neuro - Awake and alert, oriented only to person, cranial nerves II through XII grossly intact Extremities - no edema, pulses intact Current Medications: Current Medications Sig/Jennifer Start time Last Medication Dose Route Stop Time Status Admin Acetaminophen 650 MG Q6P PRN 06/09 2044 AC PO Acetaminophen 1,000 MG Q6P PRN 06/09 2044 AC IV Allopurinol 100 MG DAILY 06/10 1000 AC 06/11 PO 0944 Amlodipine Besylate 2.5 MG QPM 06/09 2200 AC 06/10 PO 2022 Aspirin Buffered 81 MG DAILY 06/10 1000 AC 06/11 PO 0944 Enoxaparin Sodium 40 MG DAILY 06/10 1000 AC 06/11 SC 0944 Escitalopram Oxalate 10 MG DAILY 06/10 1000 AC 06/11 PO 0944 Ketorolac 15 MG Q8P PRN 06/09 2045 AC Tromethamine IV Losartan Potassium 50 MG DAILY 06/10 1000 AC 06/11 PO 0944 Metoprolol Tartrate 25 MG BID 06/09 2044 AC 06/11 PO 0944 Ondansetron HCl 4 MG Q8P PRN 06/10 0130 AC PO Patient Medication 1 ED ONE ONE 06/11 1345 DC Teaching ED 06/11 1346 Pravastatin Sodium 20 MG DAILY 06/10 1000 AC 06/11 PO 0944 Sodium Chloride 1,000 ML Q13H 06/09 2044 AC 06/11 IV 0159 Assessment/Plan Assessment: Today patient is oriented to only herself upon initial conversation. She believed she was at her sisters home and asked where her purse was. She is confused and tearful, she is aware that she is forgetful and is incredibly frustrated secondary to this. Thyroid function tests, B12, Folate and RPR are negative. Patient was evaluated by physical therapy today whom determined that patient was an assist of 2 and would benefit from short term rehabilitation. Altered mental status with a history of dementia/recent UTI Patient diagnosed with a urinary tract infection on 06/06/16 and discharged home to complete a total antibiotic course of 10 days with oral amoxicillin. Patient has been reportedly more confused than baseline for which EMS services were called by home health aide staff. Further collateral information is unobtainable at this time. Repeat urinalysis does not demonstrate any persistent urinary tract infection. Serum TSH/T4, B12, folate within normal limits. RPR negative. PT evaluation determined that patient is an assistive to and would benefit from debilitation. -General medicine -Follow off antibiotics -Case management for placement Hypertension -Amlodipine 2.5 mg by mouth daily -losartan 50 mg by mouth daily -Metoprolol 25 mg by mouth daily Hyperlipidemia - pravastatin 20 mg by mouth daily Gout-allopurinol 100 mg by mouth daily Depression-escitalopram 10 mg by mouth daily Coronary artery disease-aspirin 81 mg by mouth daily Pain plan-Toradol/acetaminophen Diet-heart healthy diet DVT prophylaxis-Lovenox CODE STATUS-full code Problem List: 1. Altered mental status Pain Ratin Pain Location: None Pain Goal: Pain 4 or less Pain Plan: As noted in plan Tomorrow's Labs & Rationales: None
[2016-06-11 06:37] VITALS: BP 132/66
--- NOTE | 2016-06-11 08:41 | PN- Att Addend ---
Attending Addendum Attending Brief Note Attending note. Patient resting comfortably has got no complaints except for mild rash on the abdominal wall. Vital Signs Date Time Temp Pulse Resp B/P Pulse O2 O2 Flow FiO2 Ox Delivery Rate 06/11 0637 98.4 75 20 132/66 95 Room Air 06/10 2116 98.9 69 20 120/60 94 Room Air 06/10 2022 70 120/64 06/10 2022 70 120/64 06/10 1350 99.0 70 20 120/64 94 Room Air 06/10 1157 74 150/60 06/10 1156 74 150/60 Intake & Output 06/11 1600 06/11 0800 06/11 0000 Intake Total 960 960 Output Total Balance 960 960 Intake, IV 600 600 Intake, Oral 360 360 Number 1 1 Bowel Movements Examination patient is awake alert Neck is supple JVD is not raised no carotid bruit present. S1-S2 is normal Lungs are clear Abdomen is soft nontender bowel sounds are present. Assessment Change of mental status patient has got history of dementia history of polio in the past wheelchair-bound Will get physical therapy evaluation and patient will need to short-term rehabilitation. Urine shows evidence of Escherichia coli.
[2016-06-11 14:12] VITALS: BP 120/60
--- NOTE | 2016-06-11 17:00 | Discharge Summary ---
Visit Information Visit Dates Admission Date: 06/09/16 Discharge Date: 06/12/16 Hospital Course Course Attending Physician: MARY RODRIGUEZ MD Primary Care Physician: MARY RODRIGUEZ MD Hospital Course: 80-year-old woman with significant past medical history of dementia and childhood polio with residual paresis recently seen the [place] ED for UTI and evaluation for altered mental status/confusion. ED course: Vitals: 97.1-97.6, HR 67-77, RR 16-18, BP 108-153/52-68, O2 96-99% on room air Significant Labs: Complete blood count/serum chemistries within normal limits without leukocytosis, normal hepatic function test, troponin <0.01, urinalysis negative Chest x-ray:Small focus of disease left lower lobe which may be related to atelectasis or pneumonitis. Patient was treated in the hospital for: Altered mental status with a history of dementia/recent UTI: Patient was admitted for worsening confusion. She was gently hydrated with IV fluids, antihypertensives were held initially and restarted later. All delirium triggers and narcotics were avoided. She was put on a bowel regimen. She was treated for a UTI a few days prior to admission with 10 day course of amoxicillin. Her urine grew Escherichia coli at that time. Repeat urinalysis in the hospital did not demonstrate any UTI. She remained awake and alert in the hospital. She never spiked a fever and was not cultured. She had history of dementia however the nurse noted that her mentation was getting worse. She was not safe at home by herself as she was a fall risk and change in mental status was also new for her. Patient has history of polio and therefore was weak in her lower extremities. Patient was watched off antibiotics, evaluated by physical therapy for safe discharge and placement. Physical therapy recommended short-term rehabilitation. She was instructed to follow up with her PCP within 1 week of discharge. Hypertension: She was continued on amlodipine 2.5 daily, losartan 50 mg daily, metoprolol 25 mg daily. Hyperlipidemia - pravastatin 20 mg by mouth daily Gout-allopurinol 100 mg by mouth daily Depression-escitalopram 10 mg by mouth daily Coronary artery disease-aspirin 81 mg by mouth daily Pain plan-Toradol/acetaminophen Diet-heart healthy diet DVT prophylaxis-Lovenox CODE STATUS-full code Allergies: Coded Allergies: No Known Allergies (08/19/15) Disposition Summary Disposition Principal Diagnosis: Altered mental status, worsening dementia Additional Diagnosis: UTI in the past Discharge Disposition: SNF Discharge Instructions General Discharge Information Code Status: Full Code Patient's Diet: Heart healthy diet Patient's Activity: As tolerated Follow-Up Instructions/Appts: #1 please follow-up with the piece. In 1 week of discharge. Medications at Discharge Discharge Medications: Stop taking the following medications: Amoxicillin (Amoxicillin) 500 MG TABLET ORAL TWICE DAILY Qty = 20 Continue taking these medications: Nystatin (Nystatin) 100,000 UNIT/GRAM CREAM..G. 1 Application On the skin TWICE DAILY Qty = 30 Instructions: apply to affected area(s) Comments: PER PT AIDE Triamcinolone Acetonide (Triamcinolone Acetonide) 0.1 % CREAM..G. 1 Application On the skin TWICE DAILY Qty = 30 Comments: PER PT AIDE Escitalopram Oxalate (Escitalopram Oxalate) 10 MG TABLET 1 Tablet ORAL DAILY Qty = 30 Comments: PER PT MED LIST Pravastatin Sodium (Pravastatin Sodium) 20 MG TABLET 1 Tablet ORAL DAILY Qty = 30 Comments: PER PT MED LIST Amlodipine Besylate (Amlodipine Besylate) 5 MG TABLET 0.5 Tablet ORAL Every night Qty = 30 Comments: PER PT MED LIST Metoprolol Tartrate (Metoprolol Tartrate) 25 MG TABLET 1 Tablet ORAL TWICE DAILY Qty = 60 Comments: PER PT MED LIST Valsartan (Diovan) 40 MG TABLET 1 Tablet ORAL DAILY Qty = 30 Comments: PER PT MED LIST Ezetimibe (Zetia) 10 MG TABLET 1 Tablet ORAL DAILY Qty = 30 Comments: PER PT MED LIST Allopurinol (Allopurinol) 100 MG TABLET 1 Tablet ORAL DAILY Qty = 90 Comments: PER PT MED LIST Acetaminophen (8 Hour) 650 MG TABLET.ER 1 Tablet ORAL TWICE DAILY as needed for ARTHRITIS PAIN Comments: PER PT MED LIST Cholecalciferol (Vitamin D3) (Vitamin D3) 1,000 UNIT CAPSULE 1 Capsule ORAL DAILY Comments: PER PT MED LIST Cyanocobalamin (Vitamin B-12) 1,000 MCG TABLET 0.5 Tablet ORAL DAILY Comments: PER PT MED LIST Aspirin (Ecotrin*) 81 MG TABLET.DR 1 Tablet ORAL DAILY Comments: PER PT MED LIST Calamine (Calamine) 180 ML LOTION 1 Application On the skin Every other day Comments: PER PT MED LIST Copies To: MARY RODRIGUEZ MD Attending MD Review Statement Documenting Attending: MARY RODRIGUEZ MD
[2016-06-11 22:00] VITALS: BP 132/58
[2016-06-12 06:40] VITALS: BP 140/68
--- NOTE | 2016-06-12 07:11 | PN- Housestaff ---
Subjective Follow-up For: Altered mental status Dementia Subjective: Patient seen and examined. She is seen sitting upright in bed enjoying her breakfast. She appears tearful and moderately frustrated. She states that "no one believes me" and continues to multiple unintelligible statements. She is oriented to person and is easily reoriented to place, however quickly forgets over the period of minutes. She offers no new complaints this morning other than emphasizing her incredible amount of frustration. Additionally she did continues to deny any headache, fever, chills, chest pain, palpitations, shortness breath, cough, nausea, vomiting, diarrhea. No overnight events reported. Review of Systems Constitutional: Reports: see HPI. Objective Last 24 Hrs of Vital Signs/I&O Vital Signs Date Time Temp Pulse Resp B/P Pulse O2 O2 Flow FiO2 Ox Delivery Rate 06/12 0640 98.9 65 18 140/68 97 Room Air 06/11 2202 99.1 06/11 220 99.1 73 16 132/58 96 Room Air Room Air 06/11 2128 73 16 132/58 06/11 2129 73 16 132/58 06/11 1753 Room Air 06/11 1412 97.8 60 20 120/60 92 Room Air 06/11 0944 72 122/50 Intake & Output 06/12 1600 06/12 0800 06/12 0000 Intake Total 720 1005 Output Total Balance 720 1005 Intake, IV 600 525 Intake, Oral 120 480 Number 0 Bowel Movements Physical Exam General Appearance: Alert, Mild Distress Other Physical Findings: General -developed, well-nourished obese elderly woman in no acute distress HEENT - NCAT, PERRL, EOMI, anicteric sclera Cardio - S1, S2 w/o murmurs/gallops/rubs Resp - CTA bilaterally w/o wheezing/rhochi/crackles GI - soft, nontender, nondistended, bowel sounds present Neuro - Awake and alert, oriented only to person, cranial nerves II through XII grossly intact Extremities - no edema, pulses intact Current Medications: Current Medications Sig/Jennifer Start time Last Medication Dose Route Stop Time Status Admin Acetaminophen 650 MG .STK-MED ONE 06/11 2199 DC PO 06/11 2200 Acetaminophen 650 MG Q6P PRN 06/09 2044 AC 06/11 PO 2202 Acetaminophen 1,000 MG Q6P PRN 06/09 2044 AC IV Allopurinol 100 MG DAILY 06/10 1000 AC 06/11 PO 0944 Amlodipine Besylate 2.5 MG QPM 06/09 2200 AC 06/11 PO 2129 Aspirin Buffered 81 MG DAILY 06/10 1000 AC 06/11 PO 0944 Enoxaparin Sodium 40 MG DAILY 06/10 1000 AC 06/11 SC 0944 Escitalopram Oxalate 10 MG DAILY 06/10 1000 AC 06/11 PO 0944 Ketorolac 15 MG Q8P PRN 06/09 2044 AC Tromethamine IV Losartan Potassium 50 MG DAILY 06/10 1000 AC 06/11 PO 0944 Metoprolol Tartrate 25 MG BID 06/09 2044 AC 06/11 PO 2129 Ondansetron HCl 4 MG Q8P PRN 06/10 0130 AC PO Patient Medication 1 ED ONE ONE 06/11 1345 DC 06/11 Teaching ED 06/11 1346 1623 Pravastatin Sodium 20 MG DAILY 06/10 1000 AC 06/11 PO 0944 Sodium Chloride 1,000 ML Q13H 06/09 2044 AC 06/12 IV 0452 Assessment/Plan Assessment: Patient continues to remain only oriented to herself, upon speaking with her she believes that she is at her sister's home. She is incredibly tearful and apathetic towards her current clinical condition. Patient is safe to be discharged to short-term nursing facility for management of her worsening dementia as there is no identified organic cause. Altered mental status with a history of dementia/recent UTI Patient diagnosed with a urinary tract infection on 06/06/16 and discharged home to complete a total antibiotic course of 10 days with oral amoxicillin. Patient has been reportedly more confused than baseline for which EMS services were called by home health aide staff. Further collateral information is unobtainable at this time. Repeat urinalysis does not demonstrate any persistent urinary tract infection. Serum TSH/T4, B12, folate within normal limits. RPR negative. PT evaluation determined that patient is an assistive to and would benefit from debilitation. -General medicine -Follow off antibiotics -Case management for placement Hypertension -Amlodipine 2.5 mg by mouth daily -losartan 50 mg by mouth daily -Metoprolol 25 mg by mouth daily Hyperlipidemia - pravastatin 20 mg by mouth daily Gout-allopurinol 100 mg by mouth daily Depression-escitalopram 10 mg by mouth daily Coronary artery disease-aspirin 81 mg by mouth daily Pain plan-Toradol/acetaminophen Diet-heart healthy diet DVT prophylaxis-Lovenox CODE STATUS-full code Problem List: 1. Altered mental status Pain Ratin Pain Location: None Pain Goal: Remain pain free Pain Plan: As noted in plan Tomorrow's Labs & Rationales: None
--- NOTE | 2016-06-12 07:30 | PN- Att Addend ---
Attending Addendum Attending Brief Note Attending note. Overall patient is fairly stable she offers no complaints. Vital Signs Date Time Temp Pulse Resp B/P Pulse O2 O2 Flow FiO2 Ox Delivery Rate 06/12 0640 98.9 65 18 140/68 97 Room Air 06/11 2203 99.1 06/11 2200 99.1 73 16 132/58 96 Room Air Room Air 06/11 2129 73 16 132/58 06/11 2129 73 16 132/58 06/11 1753 Room Air 06/11 1412 97.8 60 20 120/60 92 Room Air 06/11 0944 72 122/50 Intake & Output 06/12 0800 06/12 0000 06/11 1600 Intake Total 1005 1080 Output Total Balance 1005 1080 Intake, IV 525 600 Intake, Oral 480 480 Number 0 Bowel Movements On examination Patient awake alert in no distress. Conjunctivae is pink sclerae anicteric S1-S2 is normal Lungs are clear Abdomen is soft nontender bowel sounds are present. Assessment Patient is stable to be discharged to [facility]. Patient evaluated and stable to be discharged to [facility] facility.
--- NOTE | 2016-06-12 08:27 | Patient Discharge Instructions ---
Discharge Instructions General Discharge Information You were seen/treated for: Altered mental status Special Instructions: Please follow up with PCP within 1 week of discharge. Diet Recommended Diet: Heart Healthy Activity Full Activity/No Limits: Yes (as tolerated) Acute Coronary Syndrome Inclusion Criteria At DC or during hospital stay patient has or had the following: ACS DIAGNOSIS No Discharge Core Measures Meds if any: Prescribed or Continued at Discharge Meds if any: NOT Prescribed or Continued at Discharge Congestive Heart Failure Inclusion Criteria At DC or during hospital stay patient has or had the following: CHF DIAGNOSIS No Discharge Core Measures Meds if any: Prescribed or Continued at Discharge Meds if any: NOT Prescribed or Continued at Discharge Cerebrovascular accident Inclusion Criteria At DC or during hospital stay patient has or had the following: CVA/TIA Diagnosis No Discharge Core Measures Meds if any: Prescribed or Continued at Discharge Meds if any: NOT Prescribed or Continued at Discharge Venous thromboembolism Inclusion Criteria VTE Diagnosis No VTE Type NONE VTE Confirmed by (Test) NONE Discharge Core Measures - Per Current guidelines, there needs to be overlap - treatment for the first 5 days of Warfarin therapy. - If discharged on Warfarin prior to 5 days of - overlap therapy, the patient will need to be - assessed for post discharge needs including - *Post discharge parental anticoagulation - *Warfarin and/or parental anticoagulation education - *Follow up date to check INR post discharge At least 5 days overlap therapy as Inpatient No Meds if any: Prescribed or Continued at Discharge Note: Overlap Therapy is Warfarin and Anticoagulant Meds if any: NOT Prescribed or Continued at Discharge
[2016-06-12 14:59] VITALS: BP 136/60
[2016-06-12 16:31] VITALS: BP 136/60
== END 2016-06-12 16:45 | DRG 948 ==
LOC: ENRESERVDT → ENRESERVTM → ERH 13:08 → ENPENDDIS 18:51 → 2NA 18:51 → ERHI 18:51 → 2NA 21:33
PROVIDERS: Physician Assistant; Student in an Organized Health Care Education/Training Program; ADMIT Internal Medicine
DX: R41.82 Altered mental status, unspecified (principal); F03.90 Unspecified dementia, unspecified severity, without behavioral disturbance, psychotic disturbance, mood disturbance, and anxiety; Z86.12 Personal history of poliomyelitis; I10 Essential (primary) hypertension; E78.5 Hyperlipidemia, unspecified; I25.10 Atherosclerotic heart disease of native coronary artery without angina pectoris; Z87.891 Personal history of nicotine dependence
CPT/HCPCS: 2NASP; 36415; 81001; 81003; 82436; 87086; 93005; 93010; 97110-GO; 97112-GO; 97161-GP; 97530-GO; J1650; J3101